=== PATIENT | male | born 1995 | race African-American/Black ===

== ENCOUNTER 2022-07-08 21:42 | Emergency (ER) | payer SELFPAY ==
[~2022-07-08] VITALS: Ht 190.5 cm; Wt 136.1 kg
[2022-07-08] MEDS ORDERED: ACETAMINOPHEN 325 MG TAB PO ONE ×2 (22:30→22:45)
[2022-07-08 22:36] LABS: BASOPHILS # (AUTO) 0.1 (0.0-0.1); BASOPHILS % 0.5 % (0.0-1.0); EOSINOPHILS # (AUTO) 0.1 (0.0-0.4); EOSINOPHILS % 0.5 % (0.0-6.0); HEMATOCRIT 40.4 % (38.2-49.6); HEMOGLOBIN 13.4 g/dL (14.0-18.0); LYMPHOCYTES # (AUTO) 1.6 (1.0-3.2); LYMPHOCYTES % 16.4 % (18.0-39.1); MEAN CORPUSCULAR HEMOGLOBIN 29.6 pg (28-32); MEAN CORPUSCULAR HGB CONC 33.2 g/dL (31-35); MEAN CORPUSCULAR VOLUME 89.2 fL (81-99); MONOCYTES % 9.7 % (4.4-11.3); NEUTROPHILS # (AUTO) 7.2 (2.1-6.9); NEUTROPHILS % 72.7 % (38.7-80.0); PLATELET COUNT 455 x10e3/uL (140-360); RED BLOOD COUNT 4.53 x10e6/uL (4.3-5.7); RED CELL DISTRIBUTION WIDTH 11.5 % (11.7-14.4)
[2022-07-08] MEDS ORDERED: ACETAMINOPHEN 325 MG TAB ONE (22:47)
[2022-07-08 22:55] LABS: ALBUMIN 3.5 g/dL (3.5-5.0); ANION GAP 15.4 mmol/L (8-16); CALCIUM 9.7 mg/dL (8.4-10.2); CREATININE, SERUM 1.17 mg/dL (0.72-1.25); POTASSIUM 3.4 mmol/L (3.5-5.1)
[2022-07-08 22:56] LABS: ALBUMIN/GLOBULIN RATIO 0.6 (0.8-2.0)
[2022-07-08] MEDS ORDERED: IOPAMIDOL 370 MG/ML 100 ML INFUS..BTL INJ ONE (23:30)
[2022-07-09] MEDS ORDERED: FLUCONAZOLE100 MG PO (01:58)
[2022-07-09] MEDS ORDERED: ONDANSETRON ODT4 MG PO (02:00)
[2022-07-09 02:04] VITALS: BP 120/93
== END 2022-07-09 02:09 | disposition home or self-care (01) ==
LOC: ER 21:58
DX: B37.9 Candidiasis, unspecified (principal); E80.6 Other disorders of bilirubin metabolism
CPT/HCPCS: 36415; 74177; 80053; 83690; 85025; 99284; Q9967